=== PATIENT | female | born 1935 | race Caucasian/White ===

== ENCOUNTER 2018-08-26 17:30 | Inpatient (IN) | payer MEDICARE ==
[~2018-08-26] VITALS: Ht 154.9 cm; Wt 108.6 kg
[2018-08-26 19:07] LABS: BASOPHILS 0.2 % (0-2); EOSINOPHILS 0 % (0-7); HEMATOCRIT 37.8 % (36.0-48.0); HEMOGLOBIN 12.5 g/dL (12-16); IMMATURE GRANULOCYTES 0.4 % (0-5); LYMPHOCYTES 5.3 % (15-50); MCH 32.7 pg (26.0-34.0); MCHC 33.1 g/dL (31.0-37.0); MEAN PLATELET VOLUME 9.7 fL (7.4-10.4); MONOCYTES 1.7 % (2-11); NEUTROPHILS 92.4 % (40-80); PLATELET COUNT 286 10x3/uL (130-400); RBC 3.82 10x6/uL (4.00-5.40); RDW 13.5 % (11.5-14.5); WBC 9.5 10x3/uL (4.8-10.8)
[2018-08-26 19:28] LABS: ALBUMIN 2.3 g/dL (3.4-5.0); ALKALINE PHOSPHATASE 87 U/L (46-116); ALT (SGPT) 21 U/L (10-68); BILIRUBIN - TOTAL 0.26 mg/dL (0.2-1.3); CALC OSMOLALITY 289 mosm/kg (275-300); CALCIUM 9.1 mg/dL (8.5-10.1); CARBON DIOXIDE 29.1 mmol/L (21.0-32.0); CHLORIDE - SERUM 103 mmol/L (98-107); CREATININE - SERUM 1.1 mg/dL (0.6-1.3); GLUCOSE 165 mg/dL (74-106); POTASSIUM - SERUM 4.2 mmol/L (3.5-5.1); PROTEIN - SERUM 6.9 g/dL (6.4-8.2); SODIUM 140 mmol/L (136-145); UREA NITROGEN 31 mg/dL (7-18); eGFR NON AFRICAN AMERICAN 50 mL/min (90-120)
[2018-08-26 19:37] LABS: CKMB 0.9 U/L (0.0-3.6); CREATINE KINASE 37 UL (21-215)
[2018-08-26 19:39] LABS: TROPONIN-I < 0.017 ng/mL (0.000-0.060)
--- NOTE | 2018-08-26 19:50 | NUR ---
[employer] CALLED IN FROM [employer]SULT[employer]: 2.4 EDP AND NURSE NOTIFIED.
[2018-08-26 19:51] LABS: APTT 28.2 SECONDS (22.8-39.4)
[2018-08-26 20:00] VITALS: BP 146/64
--- NOTE | 2018-08-26 20:03 | NUR ---
ROCEPHIN 1 GM FINISHED INFUSING
[2018-08-26 20:24] LABS: INR 1.17 (0.85-1.17); PROTIME 14.4 SECONDS (11.6-15.0)
--- NOTE | 2018-08-26 22:09 | NUR ---
[facility] ALERT,ORIENTED. NO COMPLAINTS AT PRESENT. O2 @ 4L PER NC ON. NO DISTRESS NOTED. IV TO LEFT HAND WIHTOUT REDENSS OR EDEMA NOTED. ORIENTED TO ROOM. CL IN REACH.
[2018-08-26] MEDS ORDERED: HYDROCODON-ACE1 EAC2 PO (23:18)
[2018-08-26] MEDS ORDERED: SYNTHROID112 MCG PO (23:19)
[2018-08-26] MEDS ORDERED: COZAAR100 MG PO (23:48)
[2018-08-27] VITALS (7 sets, daily range): BP systolic 94–144; BP diastolic 33–87; BMI 45.3
[2018-08-27 06:45] LABS: BASOPHILS 0 % (0-2); EOSINOPHILS 0 % (0-7); HEMATOCRIT 36.3 % (36.0-48.0); HEMOGLOBIN 11.8 g/dL (12-16); IMMATURE GRANULOCYTES 0.5 % (0-5); LYMPHOCYTES 12.9 % (15-50); MCH 32.1 pg (26.0-34.0); MCHC 32.5 g/dL (31.0-37.0); MCV 98.6 fL (80.0-100.0); MONOCYTES 1.5 % (2-11); NEUTROPHILS 85.1 % (40-80); PLATELET COUNT 287 10x3/uL (130-400); RBC 3.68 10x6/uL (4.00-5.40); RDW 13.3 % (11.5-14.5); WBC 7.9 10x3/uL (4.8-10.8)
[2018-08-27 07:07] LABS: ALBUMIN 2.2 g/dL (3.4-5.0); ANION GAP 10.7 mmol/L (8-16); BILIRUBIN - TOTAL 0.2 mg/dL (0.2-1.3); CALCIUM 8.9 mg/dL (8.5-10.1); CARBON DIOXIDE 31.5 mmol/L (21.0-32.0); CREATININE - SERUM 0.9 mg/dL (0.6-1.3); MAGNESIUM - SERUM 1.5 mg/dL (1.8-2.4); PHOSPHOROUS 3.9 mg/dL (2.5-4.9); POTASSIUM - SERUM 4.2 mmol/L (3.5-5.1); PROTEIN - SERUM 6.5 g/dL (6.4-8.2)
--- NOTE | 2018-08-27 07:42 | NUR ---
AAOX4. ON 4LPM VIA NC, SITTING UP RIGHT IN CHAIR, EVEN UNLABORED BREATHING, IV TO LEFT HAND, NS AT 125ML/HR, BEDSIDE COMMODE, DENIES ANY CURRENT NEEDS OR DISCOMFORTS, BED LOWERED AND LOCKED, CALL LIGHT WITHIN REACH. CPOC
--- NOTE | 2018-08-27 09:26 | NUR ---
IV DISCONTINUED TO LEFT HAND, CATHETER TIP INTACT, IV TO LEFT FOREARM PLACED BY CT PRIOR TO CT SCAN. 20 GAUGE, ASSISTED TO BED, ONE PERSON ASSIST, BED LOWERED AND LOCKED, CALL LIGHT WITHIN REACH. CPOC
--- NOTE | 2018-08-27 10:52 | NUR ---
Dr Zapien called and wanted patient NPO for a possible Bronch this afternoon for a mass. IR also called and made patient NPO for a possible thoracentesis this afternoon. Dr Zapien wants family called. I called and spoke issac Luna RN in IR to let her know what Dr Zapien said. Socorro REES also notified of phone call.
[2018-08-27 11:00] LABS: APTT 29.7 SECONDS (22.8-39.4); INR 1.14 (0.85-1.17); PROTIME 14.1 SECONDS (11.6-15.0)
--- NOTE | 2018-08-27 14:25 | NUR ---
AWAKE AND ALERT. ON 4LPM VIA NC. IV TO LEFT FOREARM, PATENT, C/O SORE THROAT, HOARSE, POST OP VITALS STABLE, DENIES ANY CURRENT NEEDS OR DISCOMFORTS, BED LOWERED AND LOCKED, CALL LIGHT WITHIN REACH. CPOC
[2018-08-28] VITALS (12 sets, daily range): BP systolic 97–146; BP diastolic 41–118; BMI 45.2
[2018-08-28 06:02] LABS: APTT 24.5 SECONDS (22.8-39.4); INR 1.2 (0.85-1.17); PROTIME 14.7 SECONDS (11.6-15.0)
[2018-08-28 06:05] LABS: ANION GAP 11.2 mmol/L (8-16); CALCIUM 8.6 mg/dL (8.5-10.1); CARBON DIOXIDE 29.7 mmol/L (21.0-32.0); CREATININE - SERUM 0.9 mg/dL (0.6-1.3); MAGNESIUM - SERUM 1.5 mg/dL (1.8-2.4); POTASSIUM - SERUM 3.9 mmol/L (3.5-5.1)
[2018-08-28 06:06] LABS: BASOPHILS 0 % (0-2); EOSINOPHILS 0 % (0-7); HEMATOCRIT 31.2 % (36.0-48.0); HEMOGLOBIN 11.5 g/dL (12-16); IMMATURE GRANULOCYTES 0.4 % (0-5); LYMPHOCYTES 6.6 % (15-50); MCH 36.6 pg (26.0-34.0); MCHC 36.9 g/dL (31.0-37.0); MCV 99.4 fL (80.0-100.0); MEAN PLATELET VOLUME 10.1 fL (7.4-10.4); MONOCYTES 3.5 % (2-11); NEUTROPHILS 89.5 % (40-80); RBC 3.14 10x6/uL (4.00-5.40); RDW 13.6 % (11.5-14.5)
[2018-08-28 06:10] LABS: PLATELET COUNT 353 10x3/uL (130-400); WBC 13.4 10x3/uL (4.8-10.8)
--- NOTE | 2018-08-28 08:40 | NUR ---
AAOX4. ON 4LPM VIA NC, IV TO LEFT FOREARM INFUSING NS AT 75ML/HR. ON TELEMETRY, NEEDS TWO PERSON ASSIST FOR TRANSFERS, 2ND BAG OF MAGNESIUM INFUSING, DENIES ANY NEEDS OR DISCOMFORTS. BED LOWERED AND LOCKED, CALL LIGHT WITHIN REACH. CPOC
--- NOTE | 2018-08-28 15:29 | NUR ---
RECIEVED BACK FROM SPECIALS AFTER PROCEDURE. AAOX4. ON 4LPM VIA NC, DRESSING TO RIGHT LATERAL RIB CAGE, C/D/I. DENIES ANY NEEDS OR DISCOMFORTS, BED LOWERED AND LOCKED, CALL LIGHT WITHIN REACH. CPOC
[2018-08-28 15:52] LABS: PROTEIN - BODY FLUID 2.3 G/DL
[2018-08-28 16:18] LABS: MACROPHAGES BF 23 %; MESOTHELIALS BF 7 %; NEUT - BF 3 %
--- NOTE | 2018-08-28 18:27 | NUR ---
SITTING UP ON SIDE OF BED, 4LPM VIA NC, IV TO LEFT FOREARM PATENT, INFUSING NS AT 50ML/HR. DRESSING C/D/I TO RIGHT SIDE OF ABD, DENIES ANY CURRENT NEEDS OR DISCOMFORTS, BED LOWERED AND LOCKED, CALL LIGHT WITHIN REACH. CPOC
--- NOTE | 2018-08-28 19:40 | NUR ---
PT SITTING UP IN BED WITHOUT DISTRESS. ASSISTED PT TO BEDSIDE COMMODE AND BACK TO BED, TWO PERSON ASSIST. IV LEFT FA INFUSING NS @ 50. LUNG SOUNDS DIMINISHED IN LOWER LOBES. PROVIDED PT WITH ICE WATER UPON REQUEST. DENIES PAIN OR NEEDS. CL IN REACH, BED ALARM ON. WILL CTM
[2018-08-29] VITALS: BP 127/55
[2018-08-29 04:00] VITALS: BP 130/68
[2018-08-29 06:22] LABS: BASOPHILS 0 % (0-2); EOSINOPHILS 0 % (0-7); HEMATOCRIT 34.8 % (36.0-48.0); HEMOGLOBIN 11.3 g/dL (12-16); IMMATURE GRANULOCYTES 0.7 % (0-5); LYMPHOCYTES 12.4 % (15-50); MCH 32.2 pg (26.0-34.0); MCHC 32.5 g/dL (31.0-37.0); MCV 99.1 fL (80.0-100.0); MONOCYTES 10.8 % (2-11); NEUTROPHILS 76.1 % (40-80); PLATELET COUNT 289 10x3/uL (130-400); RBC 3.51 10x6/uL (4.00-5.40); RDW 13.7 % (11.5-14.5)
[2018-08-29 06:30] LABS: CALC OSMOLALITY 286 mosm/kg (275-300); CALCIUM 8.9 mg/dL (8.5-10.1); CARBON DIOXIDE 26.6 mmol/L (21.0-32.0); CHLORIDE - SERUM 108 mmol/L (98-107); CREATININE - SERUM 0.7 mg/dL (0.6-1.3); PHOSPHOROUS 2.5 mg/dL (2.5-4.9); POTASSIUM - SERUM 4.2 mmol/L (3.5-5.1); SODIUM 142 mmol/L (136-145); UREA NITROGEN 25 mg/dL (7-18); eGFR NON AFRICAN AMERICAN 85 mL/min (90-120)
[2018-08-29 06:32] LABS: GLUCOSE 92 mg/dL (74-106)
--- NOTE | 2018-08-29 08:28 | NUR ---
AAOX4. ASSISTED TO SIDE OF BED FOR BREAKFAST, ON 4LPM VIA NC, IV TO LEFT FOREARM, INFUSING NS AT 50ML/HR, REQUIRE TWO PERSON ASSIST WHEN TRANSFERING, USES BEDSIDE COMMODE, DRESSING TO RIGHT SIDE POST THORACENTESIS 08/28. SHORTNESS OF BREATH UPON EXERTION, DENIES ANY CURRENT NEEDS OR DISCOMFORTS, BED LOWERED AND LOCKED, CALL LIGHT WITHIN REACH. CPOC
--- NOTE | 2018-08-29 08:53 | NUR ---
REQUESTED PRN PAIN MEDICATION FOR PAIN LEVEL 8/10 TO RIGHT SIDE. ADMINISTERED NORCO PER ORDER. DENIES ANY NEEDS. BED LOWERED AND LOCKED, CALL LIGHT WITHIN REACH. CPOC
[2018-08-29 09:19] VITALS: BP 159/65
[2018-08-29 12:55] VITALS: BP 108/45; BP 157/49
[2018-08-29 17:03] VITALS: BP 133/70
--- NOTE | 2018-08-29 18:19 | NUR ---
AAOX4. SHORT OF BREATH WHEN SPEAKING, ON 4LPM VIA NC, IV TO LEFT FOREARM PATENT, INFUSING NS AT 100ML/HR. NO BM. PAIN MEDICATION GIVEN ONE TIME DURING SHIFT, ON TELEMETRY 104 SINUS TACH CURRENTLY, DRESSING TO RIGHT LATERAL SIDE C/D/I, DENIES ANY CURRENT NEEDS OR DISCOMFORTS, BED LOWERED AND LOCKED, CALL LIGHT WITHIN REACH. CPOC
--- NOTE | 2018-08-29 19:30 | NUR ---
PT ALERT AND ORIENTED. ANSWERS QUESTIONS APPROPRIATELY. ROLLS AND TURNS INSTRUCTED. HAS BEDSIDE COMMODE IN ROOM AND REQUIRES A PARTIAL TO TWO PERSON ASSISTANCE. WEARING 4 L NASAL CANNULA. LUNGS PRESENT WITH BIALATERAL DIMINSHED SOUNDS. DRESSING TO RIGHT SIDE TORSO. HAS LEFT FOREARM IV THAT IS INFUSING 50 ML NS. DENIES FURTHER NEEDS AT THIS TIME. CALL LIGHT IN REACH AND DEMONSTRATES HOW TO USE EFFECTIVELY. BED IN LOWEST POSITION POSSIBLE. TWO SIDE RAILS UP.
[2018-08-29 20:00] VITALS: BP 154/84
[2018-08-30 04:16] LABS: BASOPHILS 0.1 % (0-2); EOSINOPHILS 0 % (0-7); HEMATOCRIT 36.4 % (36.0-48.0); HEMOGLOBIN 11.8 g/dL (12-16); IMMATURE GRANULOCYTES 0.7 % (0-5); LYMPHOCYTES 13.6 % (15-50); MCH 32.2 pg (26.0-34.0); MCHC 32.4 g/dL (31.0-37.0); MCV 99.5 fL (80.0-100.0); MEAN PLATELET VOLUME 9.7 fL (7.4-10.4); MONOCYTES 9.9 % (2-11); NEUTROPHILS 75.7 % (40-80); PLATELET COUNT 297 10x3/uL (130-400); RBC 3.66 10x6/uL (4.00-5.40); RDW 13.7 % (11.5-14.5); WBC 10.8 10x3/uL (4.8-10.8)
[2018-08-30 04:57] LABS: ANION GAP 7.1 mmol/L (8-16); CALCIUM 8.7 mg/dL (8.5-10.1); CARBON DIOXIDE 32.8 mmol/L (21.0-32.0); CREATININE - SERUM 0.8 mg/dL (0.6-1.3); MAGNESIUM - SERUM 1.6 mg/dL (1.8-2.4); PHOSPHOROUS 2.5 mg/dL (2.5-4.9); POTASSIUM - SERUM 3.9 mmol/L (3.5-5.1)
--- NOTE | 2018-08-30 08:11 | NUR ---
AWAKE AND ALERT. ORITENTED X3. NO C/O AT THIS TIME. LUNGS HAVE FAINT WHEEZES IN RIGHT LOBES, OCCASSIONAL PRODUCTIVE COUGH NOTED. SKIN IS INTACT WITHOUT REDNESS. IV TO LEFT FOREARM IS PATENT WITHOUT REDNESS AT INSERTION SITE. DENIES NEEDS.
[2018-08-30 09:01] VITALS: BP 128/104
--- NOTE | 2018-08-30 09:54 | MORECARE ---
CASE MANAGEMENT DISCHARGE SUMMARY PATIENT: EREN ALLRED UNIT: [id number] ADM DATE: 08/26/18 AGE: 82 : 36 SEX: F ROOM/BED: D.2202 AUTHOR: EWA NIELSEN PHYSICIAN: REFERRING PHYSICIAN: RHEA ALBERTO MD DATE OF SERVICE: 08/30/18 Discharge Plan Patient Name: EREN ALLRED Facility: [facility]:[place] : 1935 Planned Disposition: Anticipated Discharge Date: Discharge Date: Expected LOS: Initial Reviewer: [id number] Initial Review Date: 08/30/2018 Generated: 08/30/18 10:54 am Comments DCP- Discharge Planning Updated by [email or web address]: Ute Arce on 08/28/18 6:[address] CM RECEIVED CONSULT REGARDING SKILLED FACILITIES IN THE [place] AREA. THE PATIENT AND FAMILY WOULD LIKE A CHANGE OF FACILITIES. CM SPOKE WITH THE PATIENT. SHE IS NOT CERTAIN OF THE CHANGE. CM ADVISED THE FOLLOWING FACILITIES: [facility]SING AND [facility]AB [facility] NURSING AND REHAB [facility]- ABSOLUTELY NOT [facility] NURSING AND REHAB [facility] AND REHAB THE PATIENTASK ABOUT [facility] SHE WAS UP TO THE COMMODE. SHE WANTS TO THINK ABOUT THE SITES. HER INTEREST LIES IN [place] AT THIS TIME. ALBA IS CONSIDERING THE NEW FACILITY WHICH HAS A FIVE STAR RATING. CM WILL FOLLOW UP TO ASSIST WITH DISCHARGE PLANNING. DCPIA - Discharge Planning Initial Assessment Updated by [email or web address]: Haley Valdez on 08/30/18 9:48 am * Is the patient Alert and Oriented? Yes * Preadmission Environment [facility] * Facility Name [facility] * List name and contact numbers for known caregivers / representatives who currently or will assist patient after discharge: BEVERLY VALDEZ, * Can the patient safely return to the preadmission environment? Yes Patient Name: EREN ALLRED Page 47284 at 0954 All edits/amendments must be made on the electronic document DICTATION DATE: 08/30/18952 GOLF COURSE KEEPER: ROLAND 08/30/18952 RPT#: [id number] DC DATE: STATUS: ADM IN [facility] [address] [place] [address] END OF REPORT
--- NOTE | 2018-08-30 10:00 | NUR ---
NUTRITION F/U PT TOLERATING AHA DIET WITH 100% INTAKE BREAKFAST THIS AM. WILL CONTINUE TO PROVIDE DIET, MONITOR PO INTAKE. RD FOLLOWING
[2018-08-30 13:18] VITALS: BP 189/90
--- NOTE | 2018-08-30 14:15 | NUR ---
[place] [facility] WITHOUT DIFFICULTY. P[place]WICK CATHETER D/C AT THIS TIME.
[2018-08-30 15:54] VITALS: Ht 154.9 cm; Wt 108.6 kg
--- NOTE | 2018-08-30 16:17 | MORECARE ---
CASE MANAGEMENT DISCHARGE SUMMARY PATIENT: EREN ALLRED UNIT: [id number] ADM DATE: 08/26/18 AGE: 82 : 36 SEX: F ROOM/BED: D.2202 AUTHOR: MORALESDOC PHYSICIAN: REFERRING PHYSICIAN: RHEA ALBERTO MD DATE OF SERVICE: 08/30/18 Discharge Plan Patient Name: EREN ALLRED Facility: [facility]:[place] : 1935 Planned Disposition: Anticipated Discharge Date: Discharge Date: Expected LOS: Initial Reviewer: [id number] Initial Review Date: 08/30/2018 Generated: 08/30/18 5:17 pm Comments DCP- Discharge Planning Updated by [email or web address]: Haley Janice on 08/30/18 3:[address] Patient Name: EREN ALLRED Admission Status: ER Accout number: [id number] Admission Date: 08-26-2018 : 1935 Admission Diagnosis:PNEUMONIA, UNSPECIFIED ORGANISM Attending: RHEA ALBERTO Current LOS: 4 Anticipated DC Date: Planned Disposition: Primary Insurance: MEDICARE A & B Discharge Planning Comments: CM SPOKE WITH PATIENT AND HER NEPHEW MR. VALDEZ. I PRINTED OUT INFORMATION ON HOSPICE AND SNF FACILITIES. CALLED MR VALDEZ TO NOTIFY LIST OF ANGENCIES, NO ANSWER, WAITING FOR CALL BACK. CM TO FOLLOW AND ASSIST NEEDED WITH DC PLANNING/NEEDS. Ell Tutor: Haley Janice DCP- Discharge Planning Updated by [id number]: Ute Arce on 08/28/18 6:[address] CM RECEIVED CONSULT REGARDING SKILLED FACILITIES IN THE [place] AREA. THE PATIENT AND FAMILY WOULD LIKE A CHANGE OF FACILITIES. CM SPOKE WITH THE PATIENT. SHE IS NOT CERTAIN OF THE CHANGE. CM ADVISED THE FOLLOWING FACILITIES: [facility] RE[facility]AB [facility] NURSING AND RE[facility]AB [facility]- ABSOLUTELY NOT [place], [facility] NURSING AND REHAB [facility] AND REHAB THE PATIENTASK ABOUT [facility] SHE WAS UP TO THE COMMODE. SHE WANTS TO THINK ABOUT THE SITES. HER INTEREST LIES IN [place] AT THIS TIME. ALBA IS CONSIDERING THE NEW FACILITY WHICH HAS A FIVE STAR RATING. CM WILL FOLLOW UP TO ASSIST WITH DISCHARGE PLANNING. DCPIA - Discharge Planning Initial Assessment Updated by [email or web address]: Haley Valdez on 08/30/18 9:48 am * Is the patient Alert and Oriented? Yes * Preadmission Environment [facility] * Facility Name [facility] * List name and contact numbers for known caregivers / representatives who currently or will assist patient after discharge: BEVERLY VALDEZ, * Can the patient safely return to the preadmission environment? Yes Last DP export: 08/30/18 8:54 a Patient Name: EREN ALLRED Page 74977 at 1617 All edits/amendments must be made on the electronic document DICTATION DATE: 08/30/181616 MAIL WEIGHER: ROLAND 08/30/181616 RPT#: [id number] DC DATE: STATUS: ADM IN [facility] [address] [place] [address] END OF REPORT
[2018-08-30 16:45] VITALS: BP 147/69
--- NOTE | 2018-08-30 17:00 | NUR ---
IV TO LEFT FOREARM LEAKING. D/C WITH CATHETER INTACT. RESITED TO RIGHT FOREARM AFTER ONE ATTEMPT WITH 20 G. DENIES NEEDS.
--- NOTE | 2018-08-30 18:37 | NUR ---
REFUSED SUPPER TRAY. DENIES NEEDS. NO CHANGES NOTED.
[2018-08-30 21:12] VITALS: BP 148/73
[2018-08-31 01:12] VITALS: BP 134/70
[2018-08-31 04:45] VITALS: BP 175/71
[2018-08-31 05:48] LABS: BASOPHILS 0.1 % (0-2); EOSINOPHILS 0.1 % (0-7); HEMATOCRIT 35.2 % (36.0-48.0); HEMOGLOBIN 11.5 g/dL (12-16); IMMATURE GRANULOCYTES 0.7 % (0-5); LYMPHOCYTES 17.9 % (15-50); MCHC 32.7 g/dL (31.0-37.0); MCV 98.1 fL (80.0-100.0); MEAN PLATELET VOLUME 9.8 fL (7.4-10.4); MONOCYTES 12.5 % (2-11); NEUTROPHILS 68.7 % (40-80); PLATELET COUNT 279 10x3/uL (130-400); RBC 3.59 10x6/uL (4.00-5.40); RDW 13.4 % (11.5-14.5)
--- NOTE | 2018-08-31 05:48 | NUR ---
I have reviewed this patient and I concur with the Shift Assessment completed by the Licensed Practical Nurse today this shift.
[2018-08-31 06:17] LABS: CALC OSMOLALITY 282 mosm/kg (275-300); CALCIUM 8.7 mg/dL (8.5-10.1); CARBON DIOXIDE 32.9 mmol/L (21.0-32.0); CHLORIDE - SERUM 104 mmol/L (98-107); CREATININE - SERUM 0.6 mg/dL (0.6-1.3); GLUCOSE 91 mg/dL (74-106); MAGNESIUM - SERUM 1.5 mg/dL (1.8-2.4); PHOSPHOROUS 2.2 mg/dL (2.5-4.9); POTASSIUM - SERUM 4.1 mmol/L (3.5-5.1); SODIUM 141 mmol/L (136-145); eGFR NON AFRICAN AMERICAN > 90 mL/min (90-120)
[2018-08-31 06:24] LABS: UREA NITROGEN 17 mg/dL (7-18)
--- NOTE | 2018-08-31 08:01 | NUR ---
UP TO BR WITH MOD ASSIST OF ONE. VOIDED WITHOUT DIFFICULTY. ALERT AND ORIENTED X3. LUNGS ARE CLEAR BUT DIMINISHED THROUGHOUT. NON PRODUCTIVE COUGH NOTED. SKIN IS INTACT WITHOUT REDNESS. IV TO RIGHT FOREARM IS PATENT WITHOUT REDNESS AT INSERTION SITE. REPOSITIONED IN BED FOR COMFORT. DENIES NEEDS.
[2018-08-31 09:29] VITALS: BP 183/104
--- NOTE | 2018-08-31 10:00 | NUR ---
TOOK AM MEDS WITHOUT DIFFICULTY.UP TO BSC AGAIN. VOIDED LESS THAN 200CC CLEAR YELLOW URINE. DENIES NEEDS.
--- NOTE | 2018-08-31 10:40 | NUR ---
PT STATED SHE HATES THE METANEB, SHE DOES NOT LIKE HOW IT FEELS, IT IS TOO HARD FOR HER AND FEELS LIKE IT IS TAKING HER BREATH AWAY. PT JUST WANTS REGULAR NEBULIZER TXS
--- NOTE | 2018-08-31 12:50 | NUR ---
REQUESTED AND GIVNE ONE HYDROCODONE PO FOR C/O BACK/LEG/CHEST PAIN LEVEL 10. WILL MONITOR.
--- NOTE | 2018-08-31 13:17 | NUR ---
PT ELEVATED SBP AND DBP. SEE VITALS FLOWSHEET. TANGELA WRIGHT APRN PAGED.
[2018-08-31 13:42] VITALS: BP 149/168
--- NOTE | 2018-08-31 13:45 | NUR ---
REASSESSMENT OF BP WITH MANUAL BP CUFF. 138/80. MATERIALS CALLED FOR LARGER BP CUFF. FIDEL PLATA RN NOTIFIED.
[2018-08-31 16:45] VITALS: BP 153/89
--- NOTE | 2018-08-31 18:34 | NUR ---
ATE MOST OF SUPPER. DR. DIAZ VISITED WITH FAMILY RE DISCHARGE PLANNING AND ANSWERED NEPHEWS QUESTIONS. ATE MOST OF SUPPER TRAY. DENIES NEEDS. NO CHANGES NOTED.
[2018-08-31 20:48] VITALS: BP 176/73
[2018-09-01] VITALS (7 sets, daily range): BP systolic 147–181; BP diastolic 74–93
[2018-09-01 04:18] LABS: BASOPHILS 0.1 % (0-2); EOSINOPHILS 0.5 % (0-7); HEMATOCRIT 35.4 % (36.0-48.0); HEMOGLOBIN 11.5 g/dL (12-16); IMMATURE GRANULOCYTES 0.9 % (0-5); MCH 31.8 pg (26.0-34.0); MCHC 32.5 g/dL (31.0-37.0); MCV 97.8 fL (80.0-100.0); MEAN PLATELET VOLUME 9.5 fL (7.4-10.4); MONOCYTES 11.8 % (2-11); NEUTROPHILS 67.7 % (40-80); PLATELET COUNT 297 10x3/uL (130-400); RBC 3.62 10x6/uL (4.00-5.40); RDW 13.2 % (11.5-14.5); WBC 9.8 10x3/uL (4.8-10.8)
--- NOTE | 2018-09-01 04:20 | NUR ---
I have reviewed this patient and I concur with the Shift Assessment completed by the Licensed Practical Nurse today this shift.
[2018-09-01 04:32] LABS: CALC OSMOLALITY 281 mosm/kg (275-300); CALCIUM 8.8 mg/dL (8.5-10.1); CARBON DIOXIDE 36.3 mmol/L (21.0-32.0); CHLORIDE - SERUM 104 mmol/L (98-107); CREATININE - SERUM 0.7 mg/dL (0.6-1.3); GLUCOSE 95 mg/dL (74-106); MAGNESIUM - SERUM 1.5 mg/dL (1.8-2.4); PHOSPHOROUS 2.6 mg/dL (2.5-4.9); SODIUM 141 mmol/L (136-145); UREA NITROGEN 16 mg/dL (7-18); eGFR NON AFRICAN AMERICAN 85 mL/min (90-120)
--- NOTE | 2018-09-01 09:05 | MORECARE ---
CASE MANAGEMENT DISCHARGE SUMMARY PATIENT: EREN ALLRED UNIT: [id number] ADM DATE: 08/26/18 AGE: 82 : 36 SEX: F ROOM/BED: D.2202 AUTHOR: MORALESDOC PHYSICIAN: REFERRING PHYSICIAN: RHEA ALBERTO MD DATE OF SERVICE: 09/01/18 Discharge Plan Patient Name: EREN ALLRED Facility: [facility]:[place] : 1935 Planned Disposition: Anticipated Discharge Date: Discharge Date: Expected LOS: Initial Reviewer: [id number] Initial Review Date: 08/30/2018 Generated: 09/01/18 10:04 am Comments DCP- Discharge Planning Updated by [id number]: Haley Janice on 08/30/18 3:[address] Patient Name: EREN ALLRED Admission Status: ER Accout number: [id number] Admission Date: 08-26-2018 : 1935 Admission Diagnosis:PNEUMONIA, UNSPECIFIED ORGANISM Attending: RHEA ALBERTO Current LOS: 4 Anticipated DC Date: Planned Disposition: Primary Insurance: MEDICARE A & B Discharge Planning Comments: CM SPOKE WITH PATIENT AND HER NEPHEW MR. VALDEZ. I PRINTED OUT INFORMATION ON HOSPICE AND SNF FACILITIES. CALLED MR VALDEZ TO NOTIFY LIST OF ANGENCIES, NO ANSWER, WAITING FOR CALL BACK. CM TO FOLLOW AND ASSIST NEEDED WITH DC PLANNING/NEEDS. Cheese Specialist: Haley Janice DCP- Discharge Planning Updated by [id number]: Ute Arce on 08/28/18 6:[address] CM RECEIVED CONSULT REGARDING SKILLED FACILITIES IN THE [place] AREA. THE PATIENT AND FAMILY WOULD LIKE A CHANGE OF FACILITIES. CM SPOKE WITH THE PATIENT. SHE IS NOT CERTAIN OF THE CHANGE. CM ADVISED THE FOLLOWING FACILITIES: [facility] NURSING AND REHAB [facility]- ABSOLUTELY NOT [place], [facility] N[facility] AND REHAB [facility] AND REHAB THE PATIENTASK ABOUT [facility] SHE WAS UP TO THE COMMODE. SHE WANTS TO THINK ABOUT THE SITES. HER INTEREST LIES IN [place] AT THIS TIME. ALBA IS CONSIDERING THE NEW FACILITY WHICH HAS A FIVE STAR RATING. CM WILL FOLLOW UP TO ASSIST WITH DISCHARGE PLANNING. DCPIA - Discharge Planning Initial Assessment Updated by [id number]: Haley Janice on 08/30/18 9:48 am * Is the patient Alert and Oriented? Yes * Preadmission Environment [facility] * Facility Name [facility] * List name and contact numbers for known caregivers / representatives who currently or will assist patient after discharge: BEVERLY VALDEZ, * Can the patient safely return to the preadmission environment? Yes External Providers [facility] Next Contact Date: Service Request Date: Service Type: Resolution: Reviewer: Comments: External Provider: [facility] Next Contact Date: Service Request Date: Service Type: Resolution: Reviewer: Comments: Last DP export: 08/30/18 3:17 p Patient Name: EREN ALLRED Page 03684 at 0905 All edits/amendments must be made on the electronic document DICTATION DATE: 09/01/18903 ELECTRIC METER SETTER: ROLAND 09/01/18903 RPT#: [id number] DC DATE: STATUS: ADM IN [facility] [address] [place] [address] END OF REPORT
--- NOTE | 2018-09-01 09:26 | MORECARE ---
CASE MANAGEMENT DISCHARGE SUMMARY PATIENT: EREN ALLRED UNIT: [id number] ADM DATE: 08/26/18 AGE: 82 : 36 SEX: F ROOM/BED: D.2202 AUTHOR: EWA NIELSEN PHYSICIAN: REFERRING PHYSICIAN: RHEA ALBERTO MD DATE OF SERVICE: 09/01/18 Discharge Plan Patient Name: EREN ALLRED Facility: [facility]:[place] : 1935 Planned Disposition: Anticipated Discharge Date: Discharge Date: Expected LOS: Initial Reviewer: [id number] Initial Review Date: 08/30/2018 Generated: 09/01/18 10:25 am Comments DCP- Discharge Planning Updated by [id number]: Haley Valdez on 09/01/18 8:[address] Patient Name: EREN ALLRED Admission Status: ER Accout number: [id number] Admission Date: 08-26-2018 : 1935 Admission Diagnosis:PNEUMONIA, UNSPECIFIED ORGANISM Attending: RHEA ALBERTO Current LOS: 6 Anticipated DC Date: Planned Disposition: Primary Insurance: MEDICARE A & B Discharge Planning Comments: CM SPOKE WITH PATIENT NEPHEW MICAELA ON THE PHONE AND HE STATED THEY WOULD LIKE TO USE [facility]. CM SPOKE WITH PATIENT AND SHE AGREED BUT WAS HESITANT TO SIGN THE [place]. I SPOKE WITH [facility] AND THEY WILL COME TO [facility] TODAY. CM TO FOLLOW AND ASSIST. Inspector Brake Lining: Haley Valdez DCP- Discharge Planning Updated by [id number]: Haley Valdez on 08/30/18 3:[address] Patient Name: EREN ALLRED Admission Status: ER Accout number: [id number] Admission Date: 08-26-2018 : 1935 Admission Diagnosis:PNEUMONIA, UNSPECIFIED ORGANISM Attending: RHEA ALBERTO Current LOS: 4 Anticipated DC Date: Planned Disposition: Primary Insurance: MEDICARE A & B Discharge Planning Comments: CM SPOKE WITH PATIENT AND HER NEPHEW MR. VALDEZ. I PRINTED OUT INFORMATION ON HOSPICE AND SNF FACILITIES. CALLED MR VALDEZ TO NOTIFY LIST OF ANGENCIES, NO ANSWER, WAITING FOR CALL BACK. CM TO FOLLOW AND ASSIST NEEDED WITH DC PLANNING/NEEDS. Inspector Brake Lining: Haley Valdez DCP- Discharge Planning Updated by [id number]: Ute Arce on 08/28/18 6:[address] CM RECEIVED CONSULT REGARDING SKILLED FACILITIES IN THE [place] AREA. THE PATIENT AND FAMILY WOULD LIKE A CHANGE OF FACILITIES. CM SPOKE WITH THE PATIENT. SHE IS NOT CERTAIN OF THE CHANGE. CM ADVISED THE FOLLOWING FACILITIES: [facility] NURSING AND REHAB [facility] N[facility]- ABSOLUTELY NOT [facility] AND REHAB THE PATIENTASK ABOUT [facility] SHE WAS UP TO THE COMMODE. SHE WANTS TO THINK ABOUT THE SITES. HER INTEREST LIES IN [place] AT THIS TIME. ALBA IS CONSIDERING THE NEW FACILITY WHICH HAS A FIVE STAR RATING. CM WILL FOLLOW UP TO ASSIST WITH DISCHARGE PLANNING. DCPIA - Discharge Planning Initial Assessment Updated by [id number]: Haley Valdez on 08/30/18 9:48 am * Is the patient Alert and Oriented? Yes * Preadmission Environment [facility] * Facility Name [facility] * List name and contact numbers for known caregivers / representatives who currently or will assist patient after discharge: BEVERLY VALDEZ, * Can the patient safely return to the preadmission environment? Yes Last DP export: 09/01/18 8:04 a Patient Name: EREN ALLRED Page 03516 at 0926 All edits/amendments must be made on the electronic document DICTATION DATE: 09/01/18924 CLOSET ORGANIZER: ROLAND 09/01/18924 RPT#: [id number] DC DATE: STATUS: ADM IN [facility] [address] [place] [address] END OF REPORT
--- NOTE | 2018-09-01 16:47 | MORECARE ---
CASE MANAGEMENT DISCHARGE SUMMARY PATIENT: EREN ALLRED UNIT: [id number] ADM DATE: 08/26/18 AGE: 82 : 36 SEX: F ROOM/BED: D.2202 AUTHOR: MORALESDOC PHYSICIAN: REFERRING PHYSICIAN: RHEA ALBERTO MD DATE OF SERVICE: 09/01/18 Discharge Plan Patient Name: EREN ALLRED Facility: [facility]:[place] : 1935 Planned Disposition: Anticipated Discharge Date: Discharge Date: Expected LOS: Initial Reviewer: [id number] Initial Review Date: 08/30/2018 Generated: 09/01/18 5:47 pm Comments DCP- Discharge Planning Updated by [id number]: Haley Valdez on 09/01/18 3:[address] Patient Name: EREN ALLRED Admission Status: ER Accout number: [id number] Admission Date: 08-26-2018 : 1935 Admission Diagnosis:PNEUMONIA, UNSPECIFIED ORGANISM Attending: RHEA ALBERTO Current LOS: 6 Anticipated DC Date: Planned Disposition: Primary Insurance: MEDICARE A & B Discharge Planning Comments: CM SPOKE WITH PATIENT NEPHPREM HINOJOSA ON THE PHONE AND HE STATED THEY WOULD LIKE TO USE [facility]. CM SPOKE WITH PATIENT AND SHE AGREED BUT WAS HESITANT TO SIGN THE [place]. I SPOKE WITH [facility] AND THEY WILL COME TO [facility] TODAY. CM TO FOLLOW AND ASSIST. Public Address System Installer: Haley Valdez Appended by Haley Valdez on 09/01/2018 16:36 CDT: SPOKE TO ZACHARY AT [facility] AND SHE STATES [facility] WILL ACCEPT, NOTIFY [facility] WHEN PATIENT READY TO GO TO [place]. [facility] PHONE NUMBER [phone]. CM TO FOLLOW AND ASSIST. Appended by Haley Valdez on 09/01/2018 16:42 CDT: SPOKE TO MEDARDO AT [facility] AND THEY CAN GET PATIENT WHEN DC'D. SHE STATES THEY COULD PICK HER UP EARLIEST IS IN MORNING AROUND 8AM. CALL MEDARDO AT [facility] FOR REPORT AND TRANSPORT. CM TO FOLLOW AND ASSIST. Appended by Haley Valdez on 09/01/2018 16:42 CDT: [phone] IS [place] PHONE NUMBER. DCP- Discharge Planning Updated by [id number]: Haley Valdez on 08/30/18 3:[address] Patient Name: EREN ALLRED Admission Status: ER Accout number: [id number] Admission Date: 08-26-2018 : 1935 Admission Diagnosis:PNEUMONIA, UNSPECIFIED ORGANISM Attending: RHEA ALBERTO Current LOS: 4 Anticipated DC Date: Planned Disposition: Primary Insurance: MEDICARE A & B Discharge Planning Comments: CM SPOKE WITH PATIENT AND HER NEPHEW MR. VALDEZ. I PRINTED OUT INFORMATION ON HOSPICE AND SNF FACILITIES. CALLED MR VALDEZ TO NOTIFY LIST OF ANGENCIES, NO ANSWER, WAITING FOR CALL BACK. CM TO FOLLOW AND ASSIST NEEDED WITH DC PLANNING/NEEDS. Public Address System Installer: Haley Valdez DCP- Discharge Planning Updated by [id number]: Ute Arce on 08/28/18 6:[address] CM RECEIVED CONSULT REGARDING SKILLED FACILITIES IN THE [place] AREA. THE PATIENT AND FAMILY WOULD LIKE A CHANGE OF FACILITIES. CM SPOKE WITH THE PATIENT. SHE IS NOT CERTAIN OF THE CHANGE. CM ADVISED THE FOLLOWING FACILITIES: [facility]- ABSOLUTELY NOT [facility] NURSING AND REHAB [facility] AND REHAB THE PATIENTASK ABOUT [facility] SHE WAS UP TO THE COMMODE. SHE WANTS TO THINK ABOUT THE SITES. HER INTEREST LIES IN [place] AT THIS TIME. ALBA IS CONSIDERING THE NEW FACILITY WHICH HAS A FIVE STAR RATING. CM WILL FOLLOW UP TO ASSIST WITH DISCHARGE PLANNING. DCPIA - Discharge Planning Initial Assessment Updated by [id number]: Haley Valdez on 08/30/18 9:48 am * Is the patient Alert and Oriented? Yes * Preadmission Environment [facility] [employer] [facility]ust[facility]ial * Facility Name [facility] * List name and contact numbers for known caregivers / representatives who currently or will assist patient after discharge: BEVERLY VALDEZ, * Can the patient safely return to the preadmission environment? Yes Last DP export: 09/01/18 8:26 a Patient Name: EREN ALLRED Page [id number] Electronically Signed by [facility] on 09/01/18 at 1647 All edits/amendments must be made on the electronic document DICTATION DATE: 09/01/181646 FOSTER PARENT: ROLAND 09/01/181646 RPT#: [id number] DC DATE: STATUS: ADM IN [facility] [address] [place] [address] END OF REPORT
--- NOTE | 2018-09-01 20:38 | NUR ---
PT ALERT X 4. BREATH SOUNDS CLEAR BILAT, 4L O2 PER NC. IV TO RIGHT FOREARM, PATENT, DRESSING CDI. PT REPORTING PAIN AT 6/10, WILL MONITOR. BED LOW, CALL LIGHT IN REACH. NO OTHER NEEDS AT THIS TIME.
[2018-09-02 05:29] VITALS: BP 170/80
--- NOTE | 2018-09-02 06:27 | NUR ---
PT REFUSED METANEB TX, STATED SHE WILL ONLY DO THE MASK OR NOTHING AT ALL.
[2018-09-02 07:38] LABS: HEMATOCRIT 36.4 % (36.0-48.0); RBC 3.64 10x6/uL (4.00-5.40); RDW 13.9 % (11.5-14.5)
[2018-09-02 07:39] LABS: PLATELET COUNT 211 10x3/uL (130-400); WBC 7.3 10x3/uL (4.8-10.8)
[2018-09-02 08:19] LABS: EOSINOPHILS 1 % (0-7); LYMPHOCYTES 25 % (15-50); MONOCYTES 12 % (2-11); NEUTROPHILS 61 % (40-80)
[2018-09-02 08:24] LABS: CALC OSMOLALITY 278 mosm/kg (275-300); CALCIUM 9.1 mg/dL (8.5-10.1); CARBON DIOXIDE 36.2 mmol/L (21.0-32.0); CHLORIDE - SERUM 100 mmol/L (98-107); CREATININE - SERUM 0.7 mg/dL (0.6-1.3); GLUCOSE 82 mg/dL (74-106); MAGNESIUM - SERUM 1.4 mg/dL (1.8-2.4); PHOSPHOROUS 2.1 mg/dL (2.5-4.9); POTASSIUM - SERUM 4.1 mmol/L (3.5-5.1); SODIUM 140 mmol/L (136-145); UREA NITROGEN 16 mg/dL (7-18); eGFR NON AFRICAN AMERICAN 85 mL/min (90-120)
[2018-09-02 08:27] LABS: PLATELET ESTIMATE NORMAL
[2018-09-02 09:11] VITALS: BP 173/89
[2018-09-02] MEDS ORDERED: CATAPRES0.1 MG PO (09:54)
[2018-09-02] MEDS ORDERED: BROVANA15 MCG/2 M INH (09:55)
[2018-09-02] MEDS ORDERED: MUCINEX600 MG PO (09:55)
[2018-09-02] MEDS ORDERED: PULMICORT0.5 MG/21 UPD (09:55)
[2018-09-02] MEDS ORDERED: Tessalon Perle PO (09:56)
[2018-09-02] MEDS ORDERED: OMNICEF300 MG PO (09:56)
--- NOTE | 2018-09-02 11:14 | MORECARE ---
CASE MANAGEMENT DISCHARGE SUMMARY PATIENT: EREN ALLRED UNIT: [id number] ADM DATE: 08/26/18 AGE: 82 : 36 SEX: F ROOM/BED: D.2202 AUTHOR: MORALESDOC PHYSICIAN: REFERRING PHYSICIAN: RHEA ALBERTO MD DATE OF SERVICE: 09/02/18 Discharge Plan Patient Name: EREN ALLRED Facility: [facility]:[place] : 1935 Planned Disposition: Anticipated Discharge Date: Discharge Date: Expected LOS: Initial Reviewer: [email or web address] Initial Review Date: 08/30/2018 Generated: 09/02/18 12:14 pm Comments DCP- Discharge Planning Updated by [email or web address]: Haley Valdez on 09/02/18 10:[address] Patient Name: EREN ALLRED Admission Status: ER Accout number: [id number] Admission Date: 08-26-2018 : 1935 Admission Diagnosis:PNEUMONIA, UNSPECIFIED ORGANISM Attending: RHEA ALBERTO Current LOS: 7 Anticipated DC Date: Planned Disposition: Primary Insurance: MEDICARE A & B Discharge Planning Comments: [facility] WILL PICK PATIENT UP AT ABOUT 330PM. WILL BE ADMITTED THERE WITH [facility]. Day Worker: Haley Valdez DCP- Discharge Planning Updated by [email or web address]: Haley Valdez on 09/01/18 3:[address] Patient Name: EREN ALLRED Admission Status: ER Accout number: [id number] Admission Date: 08-26-2018 : 1935 Admission Diagnosis:PNEUMONIA, UNSPECIFIED ORGANISM Attending: RHEA ALBERTO Current LOS: 6 Anticipated DC Date: Planned Disposition: Primary Insurance: MEDICARE A & B Discharge Planning Comments: CM SPOKE WITH PATIENT NEPHEW MICAELA ON THE PHONE AND HE STATED THEY WOULD LIKE TO USE [facility]. CM SPOKE WITH PATIENT AND SHE AGREED BUT WAS HESITANT TO SIGN THE [place]. I SPOKE WITH [facility] AND THEY WILL COME TO [facility] TODAY. CM TO FOLLOW AND ASSIST. Day Worker: Haley Valdez Appended by Haley Valdez on 09/01/2018 16:36 CDT: SPOKE TO ZACHARY AT [facility] AND SHE STATES [facility] WILL ACCEPT, NOTIFY [facility] WHEN PATIENT READY TO GO TO [place]. [facility] PHONE NUMBER [phone]. CM TO FOLLOW AND ASSIST. Appended by Haley Janice on 09/01/2018 16:42 CDT: SPOKE TO MEDARDO AT [facility] AND THEY CAN GET PATIENT WHEN DC'D. SHE STATES THEY COULD PICK HER UP EARLIEST IS IN MORNING AROUND 8AM. CALL MEDARDO AT [facility] FOR REPORT AND TRANSPORT. CM TO FOLLOW AND ASSIST. Appended by Haley Valdez on 09/01/2018 16:42 CDT: [phone] [facility]. DCP- Discharge Planning Updated by [email or web address]: Haley Janice on 08/30/18 3:[address] Patient Name: EREN ALLRED Admission Status: ER Accout number: [id number] Admission Date: 08-26-2018 : 1935 Admission Diagnosis:PNEUMONIA, UNSPECIFIED ORGANISM Attending: RHEA ALBERTO Current LOS: 4 Anticipated DC Date: Planned Disposition: Primary Insurance: MEDICARE A & B Discharge Planning Comments: CM SPOKE WITH PATIENT AND HER NEPHEW MR. VALDEZ. I PRINTED OUT INFORMATION ON HOSPICE AND SNF FACILITIES. CALLED MR VALDEZ TO NOTIFY LIST OF ANGENCIES, NO ANSWER, WAITING FOR CALL BACK. CM TO FOLLOW AND ASSIST NEEDED WITH DC PLANNING/NEEDS. Day Worker: Haley Valdez DCP- Discharge Planning Updated by [email or web address]: Ute Arce on 08/28/18 6:[address] CM RECEIVED CONSULT REGARDING SKILLED FACILITIES IN THE [place] AREA. THE PATIENT AND FAMILY WOULD LIKE A CHANGE OF FACILITIES. CM SPOKE WITH THE PATIENT. SHE IS NOT CERTAIN OF THE CHANGE. CM ADVISED THE FOLLOWING FACILITIES: [facility] AND RE[facility] NURSING AND RE[facility]- ABSOLUTELY NOT [facility] N[facility]SING AND [facility]HAB [facility] AND REHAB THE PATIENTASK ABOUT [facility] SHE WAS UP TO THE COMMODE. SHE WANTS TO THINK ABOUT THE SITES. HER INTEREST LIES IN [place] AT THIS TIME. ALBA IS CONSIDERING THE NEW FACILITY WHICH HAS A FIVE STAR RATING. CM WILL FOLLOW UP TO ASSIST WITH DISCHARGE PLANNING. DCPIA - Discharge Planning Initial Assessment Updated by [email or web address]: Haley Valdez on 08/30/18 9:48 am * Is the patient Alert and Oriented? Yes * Preadmission Environment Dance Hall Host/Hostess Mcc * Facility Name [facility] * List name and contact numbers for known caregivers / representatives who currently or will assist patient after discharge: BEVERLY JANICE, * Can the patient safely return to the preadmission environment? Yes Last DP export: 09/01/18 3:47 p Patient Name: EREN ALLRED Page 38186 at 1114 All edits/amendments must be made on the electronic document DICTATION DATE: 09/02/18 111 NEUROLOGY PHYSICIAN: ROLAND 09/02/18 1114 RPT#: [id number] DC DATE: STATUS: ADM IN [facility] [address] [place] [address] END OF REPORT
[2018-09-02 12:56] VITALS: BP 154/77
--- NOTE | 2018-09-02 14:05 | NUR ---
IV THERAPY DC'ED WITH TIP INTACT. SITTING ON SIDE OF BED WAITING ON [facility]. REPORT CALLED TO CARLOS ENRIQUE. NO NEEDS AT THIS TIME
--- NOTE | 2018-09-02 15:03 | NUR ---
PATIENT RIDE IS HERE.
--- NOTE | 2018-09-02 16:34 | MORECARE ---
CASE MANAGEMENT DISCHARGE SUMMARY PATIENT: EREN ALLRED UNIT: [id number] ADM DATE: 08/26/18 AGE: 82 : 36 SEX: F ROOM/BED: D.2202 AUTHOR: EWA NIELSEN PHYSICIAN: REFERRING PHYSICIAN: RHEA ALBERTO MD DATE OF SERVICE: 09/02/18 Discharge Plan Patient Name: EREN ALLRED Facility: [facility]:[place] : 1935 Planned Disposition: Anticipated Discharge Date: Discharge Date: 09/02/2018 Expected LOS: Initial Reviewer: [id number] Initial Review Date: 08/30/2018 Generated: 09/02/18 5:34 pm Comments DCP- Discharge Planning Updated by [email or web address]: Haley Valdez on 09/02/18 10:[address] Patient Name: EREN ALLRED Admission Status: ER Accout number: [id number] Admission Date: 08-26-2018 : 1935 Admission Diagnosis:PNEUMONIA, UNSPECIFIED ORGANISM Attending: RHEA ALBERTO Current LOS: 7 Anticipated DC Date: Planned Disposition: Primary Insurance: MEDICARE A & B Discharge Planning Comments: [facility] WILL PICK PATIENT UP AT ABOUT 330PM. WILL BE ADMITTED THERE WITH [facility]. Palliative Care Coordinator: Haley Valdez DCP- Discharge Planning Updated by [email or web address]: Haley Valdez on 09/01/18 3:[address] Patient Name: EREN ALLRED Admission Status: ER Accout number: [id number] Admission Date: 08-26-2018 : 1935 Admission Diagnosis:PNEUMONIA, UNSPECIFIED ORGANISM Attending: RHEA ALBERTO Current LOS: 6 Anticipated DC Date: Planned Disposition: Primary Insurance: MEDICARE A & B Discharge Planning Comments: CM SPOKE WITH PATIENT NEPHEW MICAELA ON THE PHONE AND HE STATED THEY WOULD LIKE TO USE [facility]. CM SPOKE WITH PATIENT AND SHE AGREED BUT WAS HESITANT TO SIGN THE [place]. I SPOKE WITH [facility] AND THEY WILL COME TO [facility] TODAY. CM TO FOLLOW AND ASSIST. Palliative Care Coordinator: Haley Valdez Appended by Haley Valdez on 09/01/2018 16:36 CDT: SPOKE TO ZACHARY AT [facility] AND SHE STATES [facility] WILL ACCEPT, NOTIFY [facility] WHEN PATIENT READY TO GO TO [place]. [facility] PHONE NUMBER [phone]. CM TO FOLLOW AND ASSIST. Appended by Haley Janice on 09/01/2018 16:42 CDT: SPOKE TO MEDARDO AT [facility] AND THEY CAN GET PATIENT WHEN DC'D. SHE STATES THEY COULD PICK HER UP EARLIEST IS IN MORNING AROUND 8AM. CALL MEDARDO AT [facility] FOR REPORT AND TRANSPORT. CM TO FOLLOW AND ASSIST. Appended by Haley Janice on 09/01/2018 16:42 CDT: [phone] [facility]. DCP- Discharge Planning Updated by [email or web address]: Haley Valdez on 08/30/18 3:[address] Patient Name: EREN ALLRED Admission Status: ER Accout number: [id number] Admission Date: 08-26-2018 : 1935 Admission Diagnosis:PNEUMONIA, UNSPECIFIED ORGANISM Attending: RHEA ALBERTO Current LOS: 4 Anticipated DC Date: Planned Disposition: Primary Insurance: MEDICARE A & B Discharge Planning Comments: CM SPOKE WITH PATIENT AND HER NEPHEW MR. VALDEZ. I PRINTED OUT INFORMATION ON HOSPICE AND SNF FACILITIES. CALLED MR VALDEZ TO NOTIFY LIST OF ANGENCIES, NO ANSWER, WAITING FOR CALL BACK. CM TO FOLLOW AND ASSIST NEEDED WITH DC PLANNING/NEEDS. Palliative Care Coordinator: Haley Janice DCP- Discharge Planning Updated by [email or web address]: Ute Arce on 08/28/18 6:[address] CM RECEIVED CONSULT REGARDING SKILLED FACILITIES IN THE [place] AREA. THE PATIENT AND FAMILY WOULD LIKE A CHANGE OF FACILITIES. CM SPOKE WITH THE PATIENT. SHE IS NOT CERTAIN OF THE CHANGE. CM ADVISED THE FOLLOWING FACILITIES: [facility] N[facility]SING AND REH[facility] NURSING AND REHAB [facility]- ABSOLUTELY NOT [facility] NURSING AND REHAB [facility] AND REHAB THE PATIENTASK ABOUT [facility] SHE WAS UP TO THE COMMODE. SHE WANTS TO THINK ABOUT THE SITES. HER INTEREST LIES IN [place] AT THIS TIME. [facility]BA IS CONSIDERING THE NEW FACILITY WHICH HAS A FIVE STAR RATING. CM WILL FOLLOW UP TO ASSIST WITH DISCHARGE PLANNING. DCPIA - Discharge Planning Initial Assessment Updated by [id number]: Haley Valdez on 08/30/18 9:48 am * Is the patient Alert and Oriented? Yes * Preadmission Environment [facility] * Facility Name [facility] * List name and contact numbers for known caregivers / representatives who currently or will assist patient after discharge: BEVERLY VALDEZ, * Can the patient safely return to the preadmission environment? Yes Last DP export: 09/02/18 10:14 a Patient Name: EREN ALLRED Page 84933 at 1634 All edits/amendments must be made on the electronic document DICTATION DATE: 09/02/181632 ARCHITECTURAL PROJECT MANAGER: ROLAND 09/02/181632 RPT#: [id number] DC DATE:09/02/18 STATUS: DIS IN [facility] [address] [place] [address] END OF REPORT
== END 2018-09-02 15:06 | disposition home health service (06) | DRG 180 ==
LOC: D.ER 17:30 → D.MS 19:00
PROVIDERS: Family Medicine; General Practice; Internal Medicine Pulmonary Disease; ADMIT Internal Medicine Nephrology; ATTEND Internal Medicine Nephrology
PROC: 0BB18ZX Excision of Trachea, Via Natural or Artificial Opening Endoscopic, Diagnostic (ICD-10-PCS; 2018-08-27)
PROC: 0BB28ZX Excision of Carina, Via Natural or Artificial Opening Endoscopic, Diagnostic (ICD-10-PCS; principal; 2018-08-27 12:29)
DX: C34.90 Malignant neoplasm of unspecified part of unspecified bronchus or lung (principal); J18.9 Pneumonia, unspecified organism; J96.91 Respiratory failure, unspecified with hypoxia; J90 Pleural effusion, not elsewhere classified; Z68.42 Body mass index [BMI] 45.0-49.9, adult; E66.01 Morbid (severe) obesity due to excess calories; F32.9 Major depressive disorder, single episode, unspecified; M19.90 Unspecified osteoarthritis, unspecified site; E03.9 Hypothyroidism, unspecified; J44.9 Chronic obstructive pulmonary disease, unspecified; D64.9 Anemia, unspecified; E83.42 Hypomagnesemia; D44.12 Neoplasm of uncertain behavior of left adrenal gland; K80.20 Calculus of gallbladder without cholecystitis without obstruction